=== PATIENT | male | born 1985 | race Caucasian/White ===

== ENCOUNTER 2017-07-01 18:04 | Inpatient (IN) | payer OTHER ==
[~2017-07-01] VITALS: Ht 180.3 cm; Wt 93.0 kg
[2017-07-01] MEDS ORDERED: morphine 4 MG/ML VIAL IV STA (18:26)
[2017-07-01] MEDS ORDERED: ONDANSETRON 4 MG INJ IV STA (18:26)
[2017-07-01] MEDS ORDERED: SOD CHLORIDE 0.9% 1,000 ML IV STA ×3 (18:26→19:56)
[2017-07-01 18:41] LABS: BASOPHIL # 0.1 10^3/ul (0.0-0.1); BASOPHILS % 0.5 % (0.0-2.0); EOSINOPHILS # 0.1 10^3/ul (0.0-0.5); EOSINOPHILS % 0.5 % (0.0-7.0); HEMATOCRIT 51.9 % (42.0-52.0); HEMOGLOBIN 17.7 g/dl (14.0-18.0); LYMPHOCYTES # 2.8 10^3/ul (0.8-2.9); LYMPHOCYTES % 15.1 % (15.0-51.0); MEAN CORPUSCULAR HEMOGLOBIN 28.1 pg (29.0-33.0); MEAN CORPUSCULAR HGB CONC 34.1 g/dl (32.0-37.0); MEAN CORPUSCULAR VOLUME 82.4 fl (82.0-101.0); MEAN PLATELET VOLUME 12.1 fl (7.4-10.4); MONOCYTE # 0.9 10^3/ul (0.3-0.9); MONOCYTES % 4.8 % (0.0-11.0); NEUTROPHIL # 14.6 10^3/ul (1.6-7.5); NEUTROPHILS % 78.6 % (39.0-77.0); PLATELET COUNT 237 10^3/UL (140-415); RED CELL DISTRIBUTION WIDTH 14.7 % (11.5-14.5); WHITE BLOOD COUNT 18.6 10^3/ul (4.8-10.8)
[2017-07-01 19:03] LABS: ALBUMIN 5.8 g/dl (3.3-4.9); BILIRUBIN,INDIRECT 0.6 mg/dl (0-1.1); BILIRUBIN,TOTAL 0.6 mg/dl (0.2-1.3); CREATININE 3.16 mg/dl (0.61-1.24); POTASSIUM 5.6 mmol/L (3.5-5.1)
[2017-07-01 19:51] LABS: ALBUMIN/GLOBULIN RATIO 1.03; TOTAL PROTEIN 11.4 g/dl (6.1-8.1)
--- NOTE | 2017-07-01 20:10 | RADRPT ---
PROCEDURE: Right upper quadrant abdominal ultrasound. CLINICAL INDICATION: Abdominal pain TECHNIQUE: Nichole scale and color doppler ultrasound images of the right upper quadrant of the abdom en. COMPARISON: None FINDINGS: Pancreas: Visualized portions appear of normal echogenicity without focal lesions. Liver: Morphology:Normal in size. Contour:Normal, no evidence of nodularity. Echogenicity: Normal. Focal lesions:None. Main portal vein: Patent with hepatopetal flow. Biliary System: Gallbladder wall: Normal thickness. Gallstones: None. Intrahepatic bile ducts: Normal caliber. Common bile duct diameter (mm): 4.5 Kidneys: Right length (cm) : 11.2 Right cortical thickness: Normal. Echogenicity: Normal. Hydronephrosis: None. Renal calculi: Two small nonshadowing echogenic foci measuring up to 4 mm within the right renal pel vis possibly representing a nonobstructive calculi versus artifact. Focal lesions: None. Free fluid/ascites: None. Abdominal aorta: Normal caliber of the visualized segments. Other findings: None. IMPRESSION: Normal gallbladder without gallstones. Two small nonshadowing echogenic foci measuring up to 4 mm within the right renal pelvis possibly re presenting a nonobstructive calculi versus artifact. No hydronephrosis. RPTAT: AADD .Rufus Martin MD, Date Time Electronically viewed and signed by .Rufus Martin MD, on 07/01/2017 20:09 .B/
[2017-07-01] MEDS ORDERED: ONDANSETRON 4 MG INJ IV PRN ×2 (20:30→21:00)
[2017-07-01] MEDS ORDERED: ACETAMINOPHEN 325 MG TAB PO PRN ×2 (20:30→21:00)
[2017-07-01] MEDS ORDERED: NACL 0.9% 3 ML SYG IV SCH (21:00)
[2017-07-01] MEDS ORDERED: OXYCODONE/ACETAMINOPHEN (5/325) TAB PO PRN (21:00)
[2017-07-01] MEDS ORDERED: SODIUM CHLORIDE 0.9% 1L BAG IV SCH (21:00)
[2017-07-01] MEDS ORDERED: morphine 2 MG INJ IV PRN (21:00)
[2017-07-01] MEDS ORDERED: BISACODYL (EC) 5 MG TAB PO PRN (21:00)
[2017-07-01] MEDS ORDERED: DOCUSATE SODIUM 100 MG CAP PO PRN (21:00)
[2017-07-01 22:07] VITALS: TEMP 98.1
--- NOTE | 2017-07-01 22:18 | ERD ---
ER Documentation Chief Complaint Chief Complaint WORSENING TOTAL BODY CRAMPING SINCE NOON. BUE NUMBNESS HPI Patient is a 32-year-old male with no medical problems who presents with body cramping. He also says that he has jaw pain and cannot open his jaw. He said that it started after he was working outside today at noon. The patient tried Advil this morning. He was working outside and 100 weather. He was trying to stay hydrated with water but still feels like he is severely dehydrated. Upon review of old medical records this is the patient's first visit to the ER. He does not remember the name of his primary doctor. ROS All systems reviewed and are negative except as per history of present illness. Medications Home Meds No Active Prescriptions or Reported Meds Allergies Allergies: Coded Allergies: No Known Allergy (Unverified , 07/01/17) PMhx/Soc Medical and Surgical Hx: pt denies Medical Hx, pt denies Surgical Hx Hx Alcohol Use: No Hx Substance Use: No Hx Tobacco Use: No Smoking Status: Never smoker FmHx Family History: diabetes Physical Exam Vitals Vital Signs Date Time Temp Pulse Resp B/P Pulse Ox O2 Delivery O2 Flow Rate FiO2 07/01/17 22:07 98.1 88 15 120/81 95 Room Air 07/01/17 18:44 108 24 145/104 100 Room Air 07/01/17 18:06 97.7 122 28 97 Physical Exam Const: Moderate distress secondary to pain Head: Atraumatic Eyes: Normal Conjunctiva ENT: Normal External Ears, Nose and Mouth. Neck: Full range of motion..~ No meningismus. Resp: Clear to auscultation bilaterally Cardio: Regular rate and rhythm, no murmurs Abd: Soft, diffuse abdominal pain Skin: No petechiae or rashes Back: No midline or flank tenderness Ext: Diffuse cramping in the upper and lower extremities Neur: Awake and alert Psych: Normal Mood and Affect Result Diagram: 07/01/17182707/01/171827 Results 24 hrs Laboratory Tests Test 07/01/17 18:28 07/01/17 18:45 White Blood Count 18.610^3/ul Red Blood Count 6.3010^6/ul Hemoglobin 17.7g/dl Hematocrit 51.9% Mean Corpuscular Volume 82.4fl Mean Corpuscular Hemoglobin 28.1pg Mean Corpuscular Hemoglobin Concent 34.1g/dl Red Cell Distribution Width 14.7% Platelet Count 49568^3/UL Mean Platelet Volume 12.1fl Neutrophils % 78.6% Lymphocytes % 15.1% Monocytes % 4.8% Eosinophils % 0.5% Basophils % 0.5% Nucleated Red Blood Cells % 0.0/100WBC Neutrophils # 14.610^3/ul Lymphocytes # 2.810^3/ul Monocytes # 0.910^3/ul Eosinophils # 0.110^3/ul Basophils # 0.110^3/ul Nucleated Red Blood Cells # 0.010^3/ul Sodium Level 141mmol/L Potassium Level 5.6mmol/L Chloride Level 95mmol/L Carbon Dioxide Level 20mmol/L Anion Gap 32 Blood Urea Nitrogen 37mg/dl Creatinine 3.16mg/dl Glucose Level 142mg/dl Calcium Level 12.0mg/dl Total Bilirubin 0.6mg/dl Direct Bilirubin 0.00mg/dl Indirect Bilirubin 0.6mg/dl Aspartate Amino Transf (AST/SGOT) 41IU/L Alanine Aminotransferase (ALT/SGPT) 49IU/L Alkaline Phosphatase 101IU/L Total Protein 11.4g/dl Albumin 5.8g/dl Globulin 5.60g/dl Albumin/Globulin Ratio 1.03 Lipase 273U/L Ionized Calcium (Measured) 1.1mmol/L Magnesium Level 2.1mg/dl Creatine Kinase 350IU/L Current Medications Medications (Trade) Dose Ordered Sig/[place]ha Route PRN Reason Start Time Stop Time Status Last Admin Dose Admin Sodium Chloride (NS) 1,000 ml @ 1,000 mls/hr Q1H STAT IV 07/01/17 18:26 07/01/17 19:25 DC 07/01/17 18:52 Morphine Sulfate (morphine) 4 mg ONCE STAT IV 07/01/17 18:26 07/01/17 18:27 DC 07/01/17 18:51 Ondansetron HCl 4 mg 4 mg ONCE STAT IV 07/01/17 18:26 07/01/17 18:27 DC 07/01/17 18:52 Sodium Chloride 1,000 ml @ 1,000 mls/hr Q1H STAT IV 07/01/17 18:26 07/01/17 19:25 DC 07/01/17 19:12 Sodium Chloride (NS) 1,000 ml @ 1,000 mls/hr Q1H STAT IV 07/01/17 19:56 07/01/17 20:55 DC Ondansetron HCl (Zofran Inj) 4 mg BRIDGE ORDER PRN IV NAUSEA AND/OR VOMITING 07/01/17 20:30 07/02/17 20:29 Acetaminophen (Tylenol Tab) 650 mg ER BRIDGE PRN PO MILD PAIN/FEVER 07/01/17 20:30 07/02/17 20:29 Sodium Chloride 500 ml 500 ml ONCE IV 07/01/17 21:00 07/01/17 21:10 DC Sodium Chloride (NS) 1,000 ml @ 125 mls/hr Q8H IV 07/01/17 20:39 IV Flush (NS 3 ml) 3 ml PER PROTOCOL IV 07/01/17 21:00 Ondansetron HCl (Zofran Inj) 4 mg Q6H PRN IV NAUSEA AND/OR VOMITING 07/01/17 21:00 Acetaminophen (Tylenol Tab) 650 mg Q6H PRN PO PAIN LEVEL 1-3 OR FEVER 07/01/17 21:00 Oxycodone/ Acetaminophen (Percocet (5/ 325)) 1 tab Q6H PRN PO MODERATE PAIN LEVEL 4-6 07/01/17 21:00 Morphine Sulfate (morphine) 2 mg Q4H PRN IV SEVERE PAIN LEVEL 7-10 07/01/17 21:00 Docusate Sodium (Colace) 100 mg Q12H PRN PO CONSTIPATION 07/01/17 21:00 Bisacodyl (Dulcolax) 5 mg DAILY PRN PO CONSTIPATION 07/01/17 21:00 Famotidine (Pepcid) 20 mg Q24H PO 07/01/17 21:00 Enoxaparin Sodium (Lovenox) 30 mg DAILY SC 07/04/17 09:00 Procedures/MDM Patient is a 32-year-old male with no medical problems who presents with whole body cramping. I believe he has severe dehydration as his creatinine was elevated at 3.16. I believe the dehydration led to acute renal failure. He has no history of kidney disease in the past. His creatinine kinase which is slightly elevated and at this point I see no signs of rhabdomyolysis. The patient will be admitted to Dr. Zelaya from the panel team to a medical surgical bed. He was given 3 L of normal saline as well as morphine and is now smiling and happy. His tachycardia has resolved. Hopefully his creatinine will improve with the fluid hydration and he will not require dialysis. Departure Diagnosis: Primary Impression: Acute renal failure Acute renal failure type: unspecified Qualified Code: N17.9 - Acute renal failure, unspecified acute renal failure type Additional Impression: Numbness Condition: LACY Leiva MD Jul 01, 2017 22:18
--- NOTE | 2017-07-01 22:36 | RADRPT ---
PROCEDURE: Renal US. CLINICAL INDICATION: Renal failure. TECHNIQUE: Multiple sonographic images of the kidneys were obtained. The images were reviewed on a PACS workstation. COMPARISON: No prior studies are available for comparison. FINDINGS: Bilateral kidneys demonstrate normal size, cortical thickness and echogenicity. The right kidney james sures 10.5 x 4.6 x 5.0 cm. The left kidney measures 10.4 x 5.9 x 5.3 cm. There is an echogenic calcu greg within the mid-right kidney measuring 4.1 mm. There is an echogenic calculus within the lower po le of the left kidney measuring 4.8 mm. There is no focal renal mass identified. There is no evidenc e for obstructive uropathy. The bladder is unremarkable. The prostate is unremarkable in size and echogenicity measuring 3.9 x 2.3 x 4.1 cm. IMPRESSION: Bilateral nonobstructing renal calculi. Otherwise unremarkable renal ultrasound. .Pradip Heredia MD, Date Time Electronically viewed and signed by .Pradip Heredia MD, MD on 07/01/2017 22:36 .T/
[2017-07-01 22:42] LABS: ADD UMIC NO; UR ASCORBIC ACID 20 mg/dL (NEGATIVE); UR BILIRUBIN (Dip) NEGATIVE (NEGATIVE); UR BLOOD (Dip) NEGATIVE (NEGATIVE); UR CLARITY SLIGHTLY CLOUDY (CLEAR); UR COLOR YELLOW (YELLOW); UR GLUCOSE (Dip) NEGATIVE (NEGATIVE); UR KETONES (Dip) TRACE mg/dL (NEGATIVE); UR LEUKOCYTE ESTERASE (Dip) NEGATIVE Leu/ul (NEGATIVE); UR MUCUS FEW /HPF (NONE SEEN); UR NITRITE (Dip) NEGATIVE (NEGATIVE); UR RBC 1 /HPF (0-5); UR SPECIFIC GRAVITY (Dip) 1.027 (1.003-1.030); UR SQUAMOUS EPITHELIAL CELL FEW /HPF (FEW); UR TOTAL PROTEIN (Dip) NEGATIVE (NEGATIVE); UR UROBILINOGEN (Dip) 1+ mg/dL (NEGATIVE)
[2017-07-01 23:00] VITALS: BP 139/79; PULSE 74; RESP 20
[2017-07-01] MEDS: FAMOTIDINE 20 MG TAB PO SCH (23:24)
[2017-07-01] MEDS: SOD CHLORIDE 0.9% 1,000 ML IV SCH (23:26)
[2017-07-01 23:52] VITALS: Ht 180.3 cm; Wt 93.0 kg
[2017-07-02] MEDS: SOD CHLORIDE 0.9% 1,000 ML IV SCH ×4 (04:39→22:00)
[2017-07-02 05:29] LABS: BASOPHILS % 0.5 % (0.0-2.0); EOSINOPHILS # 0.1 10^3/ul (0.0-0.5); EOSINOPHILS % 1.8 % (0.0-7.0); HEMATOCRIT 38.8 % (42.0-52.0); LYMPHOCYTES % 25.3 % (15.0-51.0); MEAN CORPUSCULAR HGB CONC 33.5 g/dl (32.0-37.0); MEAN CORPUSCULAR VOLUME 86.6 fl (82.0-101.0); MEAN PLATELET VOLUME 11.6 fl (7.4-10.4); MONOCYTE # 0.8 10^3/ul (0.3-0.9); MONOCYTES % 9.8 % (0.0-11.0); NEUTROPHILS % 62.3 % (39.0-77.0); PLATELET COUNT 159 10^3/UL (140-415); RED BLOOD COUNT 4.48 10^6/ul (4.70-6.10); RED CELL DISTRIBUTION WIDTH 14.3 % (11.5-14.5)
[2017-07-02 05:54] LABS: ALBUMIN 3.9 g/dl (3.3-4.9); ALBUMIN/GLOBULIN RATIO 1.18; BILIRUBIN,INDIRECT 0.5 mg/dl (0-1.1); BILIRUBIN,TOTAL 0.5 mg/dl (0.2-1.3); CALCIUM 8.6 mg/dl (8.4-10.2); CHOL/HDL RATIO 3.9 RATIO; CREATININE 1.3 mg/dl (0.61-1.24); MAGNESIUM 2.2 mg/dl (1.7-2.5); PHOSPHORUS 4.4 mg/dl (2.5-4.9); POTASSIUM 5.2 mmol/L (3.5-5.1); TOTAL PROTEIN 7.2 g/dl (6.1-8.1)
[2017-07-02 06:18] LABS: THYROID STIMULATING HORMONE 1.3 MIU/L (0.465-4.680)
--- NOTE | 2017-07-02 07:01 | HP ---
Date/Time of Note Date/Time of Note DATE: 07/02/17 TIME: 06:44 Assessment/Plan VTE Prophylaxis VTE Prophylaxis Intervention: SCD's Lines/Catheters IV Catheter Type (from Nrsg): Peripheral IV Assessment/Plan Assessment/Plan 1. Acute renal insufficiency, secondary to dehydration -Patient also was mild rhabdomyolysis. -Plan is for IV hydration -will obtain urine electrolytes -Patient also has increased globulin. Check [facility] and beta 2 microglobulin -Patient also with hyperkalemia but with increased albumin as well. Continue IV hydration -Renal ultrasound with bilateral nonobstructing renal calculi -will place a nephrology consult 2. Hyperkalemia, secondary to above -Kayexalate 3. SIRS, with leukocytosis and tachycardia. No identifiable source of infection -This could be stress induced reaction -will send urine culture -Additional workup as needed HPI/ROS Admit Date/Time Admit Date/Time Jul 01, 2017 at 20:06 Hx of Present Illness This is a 32-year-old male with no significant past medical history who presented to the emergency department complaining of muscle cramps and generalized weakness. Muscle cramps are worse in bilateral lower extremities but it involves most of his body. 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 Denied chest pain, shortness of breath, fever /chills, nausea or vomiting or urinary symptoms. When he presented to the ER, he was tachycardic with a HR of 122 and tachypneic with RR 28. Labs shows a WBC of 18.6, potassium 5.6, BUN 37, creatinine 3.16, bicarb 20, calcium 12.2 with albumin of 5.8, total protein 11.4. Total CK 350. Urinalysis only shows a few hyaline casts otherwise negative for protein or UTI. Renal and RUQ showed bilateral nonobstructing renal calculi. PMH/Family/Social Social History Smoking Status: Never smoker Exam/Review of Systems Vital Signs Vitals Vital Signs Date Time Temp Pulse Resp B/P Pulse Ox O2 Delivery O2 Flow Rate FiO2 07/01/17 23:00 99.0 74 20 139/79 99 Room Air Intake and Output 07/01/17 07/01/17 07/02/17 15:00 23:00 07:00 Intake Total 480 ml Balance 480 ml Exam Constitutional: alert, oriented, well developed Head: atraumatic, normocephalic Eyes: EOMI, PERRL Respiratory: clear to auscultation, normal air movement Cardiovascular: regular rate and rhythm Gastrointestinal: non-tender, soft Extremities: normal pulses Labs Result Diagram: 07/02/1744407/02/17444 Medications Medications Current Medications Sodium Chloride (NS) 1,000 ml @ 125 mls/hr Q8H IV Last administered on 23:26; Admin Dose 125 MLS/HR; Start 07/01/17 at 20:39 Ondansetron HCl (Zofran Inj) 4 mg Q6H PRN IV NAUSEA AND/OR VOMITING; Start at 21:00 Acetaminophen (Tylenol Tab) 650 mg Q6H PRN PO PAIN LEVEL 1-3 OR FEVER; Start 07/01/17 at 21:00 Oxycodone/ Acetaminophen (Percocet (5/ 325)) 1 tab Q6H PRN PO MODERATE PAIN LEVEL 4-6; Start 07/01/17 at 21:00 Morphine Sulfate (morphine) 2 mg Q4H PRN IV SEVERE PAIN LEVEL 7-10; Start at 21:00 Docusate Sodium (Colace) 100 mg Q12H PRN PO CONSTIPATION; Start 07/01/17 at 21 :00 Bisacodyl (Dulcolax) 5 mg DAILY PRN PO CONSTIPATION; Start 07/01/17 at 21:00 Famotidine (Pepcid) 20 mg Q24H PO Last administered on 07/01/17 23:24; Admin Dose 20 MG; Start 07/01/17 at 21:00 Enoxaparin Sodium (Lovenox) 30 mg DAILY SC ; Start 07/04/17 at 09:00 SABINA MOYA MD Jul 02, 2017 07:01
[2017-07-02 07:34] VITALS: BP 107/60; RESP 20
[2017-07-02 07:51] VITALS: BP 110/56; RESP 18
[2017-07-02 09:26] LABS: ADD UMIC NO; UR ASCORBIC ACID 20 mg/dL (NEGATIVE); UR BILIRUBIN (Dip) NEGATIVE (NEGATIVE); UR BLOOD (Dip) NEGATIVE (NEGATIVE); UR CLARITY CLEAR (CLEAR); UR COLOR YELLOW (YELLOW); UR GLUCOSE (Dip) NEGATIVE (NEGATIVE); UR KETONES (Dip) NEGATIVE (NEGATIVE); UR LEUKOCYTE ESTERASE (Dip) NEGATIVE Leu/ul (NEGATIVE); UR NITRITE (Dip) NEGATIVE (NEGATIVE); UR SPECIFIC GRAVITY (Dip) 1.021 (1.003-1.030); UR TOTAL PROTEIN (Dip) NEGATIVE (NEGATIVE); UR UROBILINOGEN (Dip) NEGATIVE (NEGATIVE)
[2017-07-02 09:34] LABS: POTASSIUM,URINE RANDOM 43.8 mmol/L (25-125)
--- NOTE | 2017-07-02 10:57 | CONS ---
Date/Time of Note Date/Time of Note DATE: 07/02/17 TIME: 10:57 Assessment/Plan Assessment/Plan Additional Assessment/Plan 1. acute Kidney injury 2/2 ATN, severe prerenal azotemia 2. acute hyperkalemia due to YUSRA 3. Metabolic acidosis 4. Moderate to severe dehydratio Plan : Continue current IVF expecting Cr to improve K improving, will give kayexalate 15 gram PO x 1 dose now will follow up Consultation Date/Type/Reason Admit Date/Time Jul 01, 2017 at 20:06 Date of Consultation: Jul 02, 2017 Type of Consultation: NEPHROLOGY Reason for Consultation acute renal failure , Hyperkalemia Referring Provider: SABINA MOYA MD Hx of Present Illness 32-year-old male with no significant past medical history who presented to the emergency department complaining of muscle cramps and generalized weakness. Muscle cramps are worse in bilateral lower extremities but it involves most of his body. 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 Denied chest pain, shortness of breath, fever/chills, nausea or vomiting or urinary symptoms. When he presented to the ER, he was tachycardic with a HR of 122 and tachypneic with RR 28. Labs shows a WBC of 18.6, potassium 5.6, BUN 37, creatinine 3.16, bicarb 20, calcium 12.2 with albumin of 5.8, total protein 11.4. Total CK 350. Urinalysis only shows a few hyaline casts otherwise negative for protein or UTI. Renal and RUQ showed bilateral nonobstructing renal calculi. Cr 3.16 on admission and renal has been consulted for YUSRA, kidney stone, Constitutional: no complaints Eyes: no complaints ENT: no complaints Respiratory: no complaints Cardiovascular: no complaints Gastrointestinal: no complaints Genitourinary: flank pain, no complaints Musculoskeletal: neck pain, no complaints, other (muscle cramps , weakness ), restricted range of motion Skin: no complaints Neurologic: no complaints Endocrine: no complaints Psychological: no complaints Immunologic: no complaints Past Medical History Medical History: no pertinent history Past Surgical History Past Surgical Hx: no surgical history Family History Significant Family History: no pertinent family hx Social History Alcohol Use: none Smoking Status: Never smoker Drug Use: none Exam/Review of Systems Vital Signs Vitals Vital Signs Date Time Temp Pulse Resp B/P Pulse Ox O2 Delivery O2 Flow Rate FiO2 07/02/17 07:51 98.9 77 18 110/56 98 07/01/17 23:00 Room Air Intake and Output 07/01/17 07/01/17 07/02/17 15:00 23:00 07:00 Intake Total 480 ml Output Total 300 ml Balance 180 ml Exam Constitutional: alert Psych: no complaints Head: normocephalic Eyes: nl conjunctiva Neck: non-tender, supple Respiratory: clear to auscultation, diminished breath sounds, normal air movement Cardiovascular: regular rate and rhythm Gastrointestinal: non-tender, soft Musculoskeletal: muscle tone, muscle weakness, nl extremities to inspection, nl gait and stance Neurological: MANAGER DESKTOP II-XII intact, nl mental status, nl speech, nl strength Skin: nl turgor Lymph: nl lymph nodes Results Result Diagram: 07/02/17 0445 07/02/17 0445 Results 24 hrs Laboratory Tests Test 07/01/17 18:28 07/01/17 18:45 07/01/17 19:30 07/02/17 04:45 White Blood Count 18.6 H 8.0 # Red Blood Count 6.30 H 4.48 #L Hemoglobin 17.7 13.0 #L Hematocrit 51.9 38.8 #L Mean Corpuscular Volume 82.4 86.6 Mean Corpuscular Hemoglobin 28.1 L 29.0 Mean Corpuscular Hemoglobin Concent 34.1 33.5 Red Cell Distribution Width 14.7 H 14.3 Platelet Count 237 159 # Mean Platelet Volume 12.1 H 11.6 H Neutrophils % 78.6 H 62.3 Lymphocytes % 15.1 25.3 Monocytes % 4.8 9.8 Eosinophils % 0.5 1.8 Basophils % 0.5 0.5 Nucleated Red Blood Cells % 0.0 0.0 Neutrophils # 14.6 H 5.0 Lymphocytes # 2.8 2.0 Monocytes # 0.9 0.8 Eosinophils # 0.1 0.1 Basophils # 0.1 0.0 Nucleated Red Blood Cells # 0.0 0.0 Sodium Level 141 141 Potassium Level 5.6 H 5.2 H Chloride Level 95 L 107 # Carbon Dioxide Level 20 L 27 Anion Gap 32 H 12 # Blood Urea Nitrogen 37 H 24 #H Creatinine 3.16 H 1.30 #H Glucose Level 142 91 # Calcium Level 12.0 H 8.6 Total Bilirubin 0.6 0.5 Direct Bilirubin 0.00 0.00 Indirect Bilirubin 0.6 0.5 Aspartate Amino Transf (AST/SGOT) 41 24 Alanine Aminotransferase (ALT/SGPT) 49 44 Alkaline Phosphatase 101 52 Total Protein 11.4 H 7.2 # Albumin 5.8 H 3.9 # Globulin 5.60 H 3.30 H Albumin/Globulin Ratio 1.03 1.18 Lipase 273 Ionized Calcium (Measured) 1.1 Magnesium Level 2.1 2.2 Creatine Kinase 350 H 378 H Urine Color YELLOW Urine Clarity SLIGHTLY CLOUDY A Urine pH 5.0 Urine Specific [place] 1.027 Urine Ketones TRACE A Urine Nitrite NEGATIVE Urine Bilirubin NEGATIVE Urine Urobilinogen 1+ H Urine Leukocyte Esterase NEGATIVE Urine Microscopic RBC 1 Urine Microscopic WBC 2 Urine Squamous Epithelial Cells FEW Urine Hyaline Casts FEW A Urine Mucus FEW A Urine Hemoglobin NEGATIVE Urine Glucose NEGATIVE Urine Total Protein NEGATIVE Hemoglobin A1c 5.5 Phosphorus Level 4.4 Triglycerides Level 156 H Cholesterol Level 211 H LDL Cholesterol, Calculated 127 HDL Cholesterol 53 Cholesterol/HDL Ratio 3.9 Thyroid Stimulating Hormone (TSH) 1.300 Test 07/02/17 06:30 Urine Color YELLOW Urine Clarity CLEAR Urine pH 6.0 Urine Specific [place] 1.021 Urine Ketones NEGATIVE Urine Nitrite NEGATIVE Urine Bilirubin NEGATIVE Urine Urobilinogen NEGATIVE Urine Leukocyte Esterase NEGATIVE Urine Hemoglobin NEGATIVE Urine Random Sodium 65 Urine Random Potassium 43.8 Urine Glucose NEGATIVE Urine Total Protein NEGATIVE Medications Medications Current Medications Sodium Chloride (NS) 1,000 ml @ 125 mls/hr Q8H IV Last administered on t 23:26; Admin Dose 125 MLS/HR; Start 07/01/17 at 20:39 Ondansetron HCl (Zofran Inj) 4 mg Q6H PRN IV NAUSEA AND/OR VOMITING; Start at 21:00 Acetaminophen (Tylenol Tab) 650 mg Q6H PRN PO PAIN LEVEL 1-3 OR FEVER; Start 07/01/17 at 21:00 Oxycodone/ Acetaminophen (Percocet (5/ 325)) 1 tab Q6H PRN PO MODERATE PAIN LEVEL 4-6; Start 07/01/17 at 21:00 Morphine Sulfate (morphine) 2 mg Q4H PRN IV SEVERE PAIN LEVEL 7-10; Start at 21:00 Docusate Sodium (Colace) 100 mg Q12H PRN PO CONSTIPATION; Start 07/01/17 at 21 :00 Bisacodyl (Dulcolax) 5 mg DAILY PRN PO CONSTIPATION; Start 07/01/17 at 21:00 Famotidine (Pepcid) 20 mg Q24H PO Last administered on 07/01/17t 23:24; Admin Dose 20 MG; Start 07/01/17 at 21:00 Enoxaparin Sodium (Lovenox) 30 mg DAILY SC ; Start 07/04/17 at 09:00 HELEN BUTT MD Jul 02, 2017 10:57
[2017-07-02] MEDS ORDERED: NA POLYST SULFON 15 GM/60 ML BTL PO ONE (11:00)
--- NOTE | 2017-07-02 11:06 | PN ---
Date/Time of Note Date/Time of Note DATE: 07/02/17 TIME: 11:03 Assessment/Plan VTE Prophylaxis VTE Prophylaxis Intervention: heparin Lines/Catheters IV C[facility]ter Type (from [facility]): Peripheral IV Urinary Cath still in place: No Assessment/Plan Chief Complaint/Hosp Course Assessment/Plan: 32 M with: 1. Acute renal insufficiency, secondary to dehydration -improving, patient also with mild rhabdomyolysis. -Continue IV hydration -Follow-up urine electrolytes -Patient also has increased globulin, follow-up [facility] and beta 2 microglobulin -Renal ultrasound with bilateral nonobstructing renal calculi -Follow-up nephrology consult recommendations 2. Hyperkalemia, secondary to above -Kayexalate 3. SIRS, with leukocytosis and tachycardia. No identifiable source of infection-improving, This could be stress induced reaction Follow-up urine culture -Additional workup as needed Problems: Subjective 24 Hr Interval Summary Free Text/Dictation Patient says he has less muscle pains, asking when he can go home. Exam/Review of Systems Vital Signs Vitals Vital Signs Date Time Temp Pulse Resp B/P Pulse Ox O2 Delivery O2 Flow Rate FiO2 07/02/17 07:51 98.9 77 18 110/56 98 07/01/17 23:00 Room Air Intake and Output 07/01/17 07/01/17 07/02/17 15:00 23:00 07:00 Intake Total 480 ml Output Total 300 ml Balance 180 ml Exam Constitutional: alert, oriented, well developed Head: atraumatic, normocephalic Eyes: EOMI, PERRL Respiratory: clear to auscultation, normal air movement Cardiovascular: regular rate and rhythm Gastrointestinal: non-tender, soft Extremities: normal pulses Results Result Diagram: 07/02/17 0445 07/02/17 0445 Results 24 hrs Laboratory Tests Test 07/01/17 18:28 07/01/17 18:45 07/01/17 19:30 07/02/17 04:45 White Blood Count 18.6 H 8.0 # Red Blood Count 6.30 H 4.48 #L Hemoglobin 17.7 13.0 #L Hematocrit 51.9 38.8 #L Mean Corpuscular Volume 82.4 86.6 Mean Corpuscular Hemoglobin 28.1 L 29.0 Mean Corpuscular Hemoglobin Concent 34.1 33.5 Red Cell Distribution Width 14.7 H 14.3 Platelet Count 237 159 # Mean Platelet Volume 12.1 H 11.6 H Neutrophils % 78.6 H 62.3 Lymphocytes % 15.1 25.3 Monocytes % 4.8 9.8 Eosinophils % 0.5 1.8 Basophils % 0.5 0.5 Nucleated Red Blood Cells % 0.0 0.0 Neutrophils # 14.6 H 5.0 Lymphocytes # 2.8 2.0 Monocytes # 0.9 0.8 Eosinophils # 0.1 0.1 Basophils # 0.1 0.0 Nucleated Red Blood Cells # 0.0 0.0 Sodium Level 141 141 Potassium Level 5.6 H 5.2 H Chloride Level 95 L 107 # Carbon Dioxide Level 20 L 27 Anion Gap 32 H 12 # Blood Urea Nitrogen 37 H 24 #H Creatinine 3.16 H 1.30 #H Glucose Level 142 91 # Calcium Level 12.0 H 8.6 Total Bilirubin 0.6 0.5 Direct Bilirubin 0.00 0.00 Indirect Bilirubin 0.6 0.5 Aspartate Amino Transf (AST/SGOT) 41 24 Alanine Aminotransferase (ALT/SGPT) 49 44 Alkaline Phosphatase 101 52 Total Protein 11.4 H 7.2 # Albumin 5.8 H 3.9 # Globulin 5.60 H 3.30 H Albumin/Globulin Ratio 1.03 1.18 Lipase 273 Ionized Calcium (Measured) 1.1 Magnesium Level 2.1 2.2 Creatine Kinase 350 H 378 H Urine Color YELLOW Urine Clarity SLIGHTLY CLOUDY A Urine pH 5.0 Urine Specific [place] 1.027 Urine Ketones TRACE A Urine Nitrite NEGATIVE Urine Bilirubin NEGATIVE Urine Urobilinogen 1+ H Urine Leukocyte Esterase NEGATIVE Urine Microscopic RBC 1 Urine Microscopic WBC 2 Urine Squamous Epithelial Cells FEW Urine Hyaline Casts FEW A Urine Mucus FEW A Urine Hemoglobin NEGATIVE Urine Glucose NEGATIVE Urine Total Protein NEGATIVE Hemoglobin A1c 5.5 Phosphorus Level 4.4 Triglycerides Level 156 H Cholesterol Level 211 H LDL Cholesterol, Calculated 127 HDL Cholesterol 53 Cholesterol/HDL Ratio 3.9 Thyroid Stimulating Hormone (TSH) 1.300 Test 07/02/17 06:30 Urine Color YELLOW Urine Clarity CLEAR Urine pH 6.0 Urine Specific [place] 1.021 Urine Ketones NEGATIVE Urine Nitrite NEGATIVE Urine Bilirubin NEGATIVE Urine Urobilinogen NEGATIVE Urine Leukocyte Esterase NEGATIVE Urine Hemoglobin NEGATIVE Urine Random Sodium 65 Urine Random Potassium 43.8 Urine Glucose NEGATIVE Urine Total Protein NEGATIVE Medications Medications Current Medications Sodium Chloride (NS) 1,000 ml @ 125 mls/hr Q8H IV Last administered on 23:26; Admin Dose 125 MLS/HR; Start 07/01/17 at 20:39 Ondansetron HCl (Zofran Inj) 4 mg Q6H PRN IV NAUSEA AND/OR VOMITING; Start at 21:00 Acetaminophen (Tylenol Tab) 650 mg Q6H PRN PO PAIN LEVEL 1-3 OR FEVER; Start 07/01/17 at 21:00 Oxycodone/ Acetaminophen (Percocet (5/ 325)) 1 tab Q6H PRN PO MODERATE PAIN LEVEL 4-6; Start 07/01/17 at 21:00 Morphine Sulfate (morphine) 2 mg Q4H PRN IV SEVERE PAIN LEVEL 7-10; Start at 21:00 Docusate Sodium (Colace) 100 mg Q12H PRN PO CONSTIPATION; Start 07/01/17 at 21 :00 Bisacodyl (Dulcolax) 5 mg DAILY PRN PO CONSTIPATION; Start 07/01/17 at 21:00 Famotidine (Pepcid) 20 mg Q24H PO Last administered on 07/01/17 23:24; Admin Dose 20 MG; Start 07/01/17 at 21:00 ADARSH PATTON Jul 02, 2017 11:06
[2017-07-02] MEDS: HEPARIN 5,000 UNIT/0.5 ML VIAL SC SCH ×2 (13:58→20:33)
[2017-07-02 14:42] VITALS: BP 124/69; RESP 20
[2017-07-02 19:02] VITALS: BP 127/83; RESP 18
[2017-07-02] MEDS: FAMOTIDINE 20 MG TAB PO SCH (21:06)
[2017-07-03 02:44] VITALS: BP 128/80; RESP 18
[2017-07-03 05:20] LABS: BASOPHIL # 0.1 10^3/ul (0.0-0.1); BASOPHILS % 1.1 % (0.0-2.0); EOSINOPHILS # 0.3 10^3/ul (0.0-0.5); EOSINOPHILS % 6.3 % (0.0-7.0); HEMATOCRIT 39.6 % (42.0-52.0); HEMOGLOBIN 12.6 g/dl (14.0-18.0); LYMPHOCYTES # 1.9 10^3/ul (0.8-2.9); LYMPHOCYTES % 35.6 % (15.0-51.0); MEAN CORPUSCULAR HEMOGLOBIN 28.2 pg (29.0-33.0); MEAN CORPUSCULAR HGB CONC 31.8 g/dl (32.0-37.0); MEAN CORPUSCULAR VOLUME 88.6 fl (82.0-101.0); MEAN PLATELET VOLUME 12.1 fl (7.4-10.4); MONOCYTE # 0.4 10^3/ul (0.3-0.9); MONOCYTES % 8.2 % (0.0-11.0); NEUTROPHIL # 2.6 10^3/ul (1.6-7.5); NEUTROPHILS % 48.4 % (39.0-77.0); PLATELET COUNT 143 10^3/UL (140-415); RED BLOOD COUNT 4.47 10^6/ul (4.70-6.10); RED CELL DISTRIBUTION WIDTH 14.2 % (11.5-14.5); WHITE BLOOD COUNT 5.4 10^3/ul (4.8-10.8)
[2017-07-03 05:42] LABS: CALCIUM 8.1 mg/dl (8.4-10.2); CREATININE 0.78 mg/dl (0.61-1.24); POTASSIUM 4.4 mmol/L (3.5-5.1)
[2017-07-03] MEDS: SOD CHLORIDE 0.9% 1,000 ML IV SCH (06:19)
[2017-07-03] MEDS: HEPARIN 5,000 UNIT/0.5 ML VIAL SC SCH (09:22)
--- NOTE | 2017-07-03 11:10 | PDOCDIS ---
Discharge Instructions CONDITION Patient Condition: Stable HOME CARE INSTRUCTIONS: Diet Instructions: Regular ACTIVITY: Activity Restrictions: Slowly Increase Activity Rest between Activity Avoid heavy lifting Bathing Restrictions: Shower FOLLOW UP/APPOINTMENTS Follow-up Plan Please take your medications as prescribed. Please follow-up with your regular doctor in the clinic in the next 1 week. ADARSH PATTON Jul 03, 2017 11:10
--- NOTE | 2017-07-03 11:29 | CONS ---
Date/Time of Note Date/Time of Note DATE: 07/03/17 TIME: 11:28 Assessment/Plan Assessment/Plan Chief Complaint/Hosp Course 32-year-old male with no significant past medical history who presented to the emergency department complaining of muscle cramps and generalized weakness. Muscle cramps are worse in bilateral lower extremities but it involves most of his body. 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 Denied chest pain, shortness of breath, fever/chills, nausea or vomiting or urinary symptoms. When he presented to the ER, he was tachycardic with a HR of 122 and tachypneic with RR 28. Labs shows a WBC of 18.6, potassium 5.6, BUN 37, creatinine 3.16, bicarb 20, calcium 12.2 with albumin of 5.8, total protein 11.4. Total CK 350. Urinalysis only shows a few hyaline casts otherwise negative for protein or UTI. Renal and RUQ showed bilateral nonobstructing renal calculi. Cr 3.16 on admission and renal has been consulted for YUSRA, kidney stone, Problems: Additional Assessment/Plan 1. acute Kidney injury 2/2 ATN, severe prerenal azotemia 2. acute hyperkalemia due to YUSRA 3. Metabolic acidosis 4. Moderate to severe dehydratio Plan : Continue current IVF- Cr normal, d/c IVF now ok to d/c home today Consultation Date/Type/Reason Admit Date/Time Jul 01, 2017 at 20:06 Initial Consult Date 07/02/17 Type of Consultation: NEPHROLOGY Referring Provider: SABINA MOYA MD 24 HR Interval Summary Free Text/Dictation doing ok, Cr normal with IVF hydration, Exam/Review of Systems Vital Signs Vitals Vital Signs Date Time Temp Pulse Resp B/P Pulse Ox O2 Delivery O2 Flow Rate FiO2 07/03/17 02:44 98.7 76 18 128/80 98 07/01/17 23:00 Room Air Intake and Output 07/02/17 07/02/17 07/03/17 15:00 23:00 07:00 Intake Total 1000 ml 2650 ml 2000 ml Output Total 1100 ml 1700 ml Balance 1000 ml 1550 ml 300 ml Exam Constitutional: alert Respiratory: clear to auscultation, diminished breath sounds, normal air movement Cardiovascular: regular rate and rhythm Gastrointestinal: non-tender, soft Musculoskeletal: muscle tone, muscle weakness, nl extremities to inspection, nl gait and stance Neurological: LOAN CLOSER II-XII intact, nl mental status, nl speech, nl strength Results Result Diagram: 07/03/1744407/03/17444 Results 24 hrs Laboratory Tests Test 07/03/17 04:45 White Blood Count 5.4 # Red Blood Count 4.47 L Hemoglobin 12.6 L Hematocrit 39.6 L Mean Corpuscular Volume 88.6 Mean Corpuscular Hemoglobin 28.2 L Mean Corpuscular Hemoglobin Concent 31.8 L Red Cell Distribution Width 14.2 Platelet Count 143 Mean Platelet Volume 12.1 H Neutrophils % 48.4 Lymphocytes % 35.6 Monocytes % 8.2 Eosinophils % 6.3 Basophils % 1.1 Nucleated Red Blood Cells % 0.0 Neutrophils # 2.6 Lymphocytes # 1.9 Monocytes # 0.4 Eosinophils # 0.3 Basophils # 0.1 Nucleated Red Blood Cells # 0.0 Sodium Level 142 Potassium Level 4.4 Chloride Level 109 Carbon Dioxide Level 25 Anion Gap 12 Blood Urea Nitrogen 12 # Creatinine 0.78 Glucose Level 90 Calcium Level 8.1 L Creatine Kinase 376 H Medications Medications Current Medications Sodium Chloride (NS) 1,000 ml @ 125 mls/hr Q8H IV Last administered on t 06:19; Admin Dose 125 MLS/HR; Start 07/01/17 at 20:39 Ondansetron HCl (Zofran Inj) 4 mg Q6H PRN IV NAUSEA AND/OR VOMITING; Start at 21:00 Acetaminophen (Tylenol Tab) 650 mg Q6H PRN PO PAIN LEVEL 1-3 OR FEVER; Start 07/01/17 at 21:00 Oxycodone/ Acetaminophen (Percocet (5/ 325)) 1 tab Q6H PRN PO MODERATE PAIN LEVEL 4-6; Start 07/01/17 at 21:00 Morphine Sulfate (morphine) 2 mg Q4H PRN IV SEVERE PAIN LEVEL 7-10; Start at 21:00 Docusate Sodium (Colace) 100 mg Q12H PRN PO CONSTIPATION; Start 07/01/17 at 21 :00 Bisacodyl (Dulcolax) 5 mg DAILY PRN PO CONSTIPATION; Start 07/01/17 at 21:00 Famotidine (Pepcid) 20 mg Q24H PO Last administered on 07/02/17 21:06; Admin Dose 20 MG; Start 07/01/17 at 21:00 Heparin Sodium (Porcine) (Heparin (5000 Units/0.5 ml)) 5,000 unit BID SC Last administered on 07/03/17 09:22; Admin Dose 5,000 UNIT; Start 07/02/17 at 11: 30 HELEN BUTT MD Jul 03, 2017 11:29
--- NOTE | 2017-07-03 13:30 | RADRPT ---
Vent Rate: 65 bpm RR Interval: 0 msec [place] Interval: 146 msec QRS Duration: 102 msec QT Interval: 422 msec QTC Interval: 438 msec P-R-T [place]: 55 - 81 - 55 degrees Normal sinus rhythm Normal ECG Electronically Signed By: Quan Banegas [id number]
--- NOTE | 2017-07-03 15:19 | DS ---
DATE OF ADMISSION: 07/01/2017 DATE OF DISCHARGE: 07/03/2017 HISTORY OF PRESENT ILLNESS: This is a 32-year-old male, originally admitted on 07/02/2017, being discharged home on 07/03/2017. The patient came in with renal insufficiency and muscle cramps and generalized weakness. He was found with signs of dehydration with hyperkalemia and renal insufficiency and also mild rhabdomyolysis. He was admitted, given aggressive IV fluid hydration. Over the course of his hospital stay, BUN and creatinine levels were checked they returned to normal levels. His creatine kinase was still slightly elevated on day of discharge, but the patient's muscle symptoms regarding his pain symptoms had significantly decreased. He was able to ambulate and tolerate a p.o. diet. His vital signs were stable as well. He has been encouraged to continue aggressive hydration at home and to return if there is any return of muscle cramps, but can be discharged today in improved condition. He will go not home with any new medications. He will follow up with his primary care doctor in the clinic in the next 1 week and given strict return precautions. FINAL DIAGNOSES: 1. Muscle cramps and pain, secondary to dehydration leading to renal insufficiency, and mild rhabdomyolysis, now improving. 2. Hyperkalemia secondary to number 1. Improving. 3. Systemic inflammatory response syndrome and tachycardia, now resolved. TIME SPENT DISCHARGING PATIENT: 35 minutes. Dictated By: Layton Godfrey MD /[email or web address] /Document#: [id number]
[2017-07-03] MEDS ORDERED: FAMOTIDINE 20 MG TAB PO SCH (21:00)
[2017-07-04] MEDS ORDERED: ENOXAPARIN 30 MG/0.3 ML SYG SC SCH (09:00)
== END 2017-07-03 14:50 | disposition home or self-care (01) | DRG 640 ==
LOC: E/R 18:04 → MS1 20:06
PROVIDERS: ADMIT Internal Medicine; ATTEND Internal Medicine
DX: E87.5 Hyperkalemia (principal); N17.0 Acute kidney failure with tubular necrosis; E86.0 Dehydration; R65.11 Systemic inflammatory response syndrome (SIRS) of non-infectious origin with acute organ dysfunction; M62.82 Rhabdomyolysis; E87.2 Acidosis
CPT/HCPCS: 36415; 76705; 76775; 80048; 80053; 80061; 81001; 81003; 82330; 82436; 82550; 83036; 83690; 83735; 84100; 84133; 84300; 84443; 85025; 87086; 93005; 96374; 96375; J1644; J2270; J2405; J7030